=== PATIENT | male | born 1970 | race Caucasian/White ===

== ENCOUNTER 2017-10-09 20:28 | Emergency (ER) | payer OTHER ==
[2017-10-09 22:33] VITALS: BP 000/00
== END 2017-10-09 22:32 | disposition left against medical advice (07) ==
LOC: ED 20:28
DX: R10.84 Generalized abdominal pain (principal); Z53.21 Procedure and treatment not carried out due to patient leaving prior to being seen by health care provider

== ENCOUNTER 2018-11-27 01:43 | Emergency (ER) | payer OTHER ==
[2018-11-27] MEDS ORDERED: NS 0.9% 1000 ML** 1,000 ML IV ONE (02:07)
[2018-11-27] MEDS ORDERED: Metoclopramide IV* 5 MG/ML 2 ML VIAL IV ONE (02:07)
[2018-11-27] MEDS ORDERED: Morphine VIAL* 10 MG/ML 1 ML VIAL IV ONE ×2 (02:07→04:03)
[2018-11-27] MEDS ORDERED: Ketorolac INJ* 15 MG/ML 1 ML VIAL IV ONE (02:07)
--- NOTE | 2018-11-27 02:12 | ED ---
Abdominal Pain/Male - HPI Summary HPI Summary: A 48 y/o male presents to [facility] with a chief complaint of left sided abdominal pain since 23:30 11/26/18. The patient reports that this pain woke him up. At triage he rated his pain as a 10/10 in severity. Per triage note, his pain radiates to the left side of his back. He also c/o N/V but denies any testicular pain or any urinary symptoms. He denies a Hx of kidney stones. - History of Current Complaint Chief Complaint: EDAbdPain Stated Complaint: ABD PAIN Time Seen by Provider: 11/27/18 01:56 Hx Obtained From: Patient Onset/Duration: Sudden Onset, Lasting Hours, Still Present Timing: Constant, Lasting Hours Severity Initially: Severe Severity Currently: Severe Pain Intensity: 10 Pain Scale Used: 0-10 Numeric Location: Other - left sided Radiates: Yes Radiates to: Back Character: Sharp Aggravating Factor(s): Nothing Alleviating Factor(s): Nothing Associated Signs And Symptoms: Positive: Nausea, Vomiting. Negative: Fever, Urinary Symptoms - Allergies/Home Medications Allergies/Adverse Reactions: Allergies Allergy/AdvReac Type Severity Reaction Status Date / Time No Known Allergies Allergy Verified 11/01/16 12:01 Home Medications: Home Medications NK [No Home Medications Reported] 11/27/18 [History Confirmed 11/27/18] PMH/Surg Hx/FS Hx/Imm Hx Endocrine/Hematology History: Denies: Hx Diabetes Cardiovascular History: Denies: Hx Hypertension, Hx Pacemaker/ICD Respiratory History: Denies: Hx Asthma History: Denies: Hx Kidney Stones, Hx Renal Disease Sensory History: Denies: Hx Hearing Aid Psychiatric History: Denies: Hx Panic Disorder - Surgical History Surgery Procedure, Year, and Place: T&A Infectious Disease History: No Infectious Disease History: Denies: Traveled Outside the [place] in Last 30 Days - Social History Alcohol Use: None Substance Use Type: Reports: None Smoking Status (MU): Never Smoked Tobacco Review of Systems Negative: Fever Positive: Abdominal Pain, Vomiting, Nausea Positive: no symptoms reported. Negative: pain All Other Systems Reviewed And Are Negative: Yes Physical Exam - Summary Physical Exam Summary: VITAL SIGNS: Reviewed. GENERAL: Patient is a well-developed and nourished MALE who is lying comfortable in the stretcher. Patient is not in any acute respiratory distress. HEAD AND FACE: No signs of trauma. No ecchymosis, hematomas or skull depressions. No sinus tenderness. EYES: PERRLA, EOMI x 2, No injected conjunctiva, no nystagmus. EARS: Hearing grossly intact. Ear canals and tympanic membranes are within normal limits. MOUTH: Oropharynx within normal limits. NECK: Supple, trachea is midline, no adenopathy, no JVD, no carotid bruit, no c- spine tenderness, neck with full ROM. CHEST: Symmetric, no tenderness at palpation LUNGS: Clear to auscultation bilaterally. No wheezing or crackles. CVS: Regular rate and rhythm, S1 and S2 present, no murmurs or gallops appreciated. ABDOMEN: Soft, Left CVA tenderness. No signs of distention. No rebound no guarding, and no masses palpated. Bowel sounds are normal. EXTREMITIES: FROM in all major joints, no edema, no cyanosis or clubbing. NEURO: Alert and oriented x 3. No acute neurological deficits. Speech is normal and follows commands. SKIN: Dry and warm Triage Information Reviewed: Yes Vital Signs On Initial Exam: Initial Vitals Temp Pulse Resp BP Pulse Ox 95.5 F 61 22 173/104 99 11/27/18 01:53 11/27/18 01:53 11/27/18 01:53 11/27/18 01:53 11/27/18 01:53 Vital Signs Reviewed: Yes Diagnostics - Vital Signs Vital Signs Temp Pulse Resp BP Pulse Ox 11/27/18 01:53 95.5 F 61 22 173/104 99 - Laboratory Result Diagrams: 11/27/18 02:30 11/27/18 02:30 Lab Statement: Any lab studies that have been ordered have been reviewed, and results considered in the medical decision making process. - CT abdomen/pelvis CT Interpretation Completed By: Radiologist Summary of CT Findings: 1. Nonobstructing left renal calculus. 2. Bladder calculus. 3. Mild left hydroureteronephrosis, possibly representing residual change from. recent passage of a distal left ureteral calculus. 4. Colonic diverticulosis. ED physician has reviewed this imaging report. Re-Evaluation - Re-Evaluation First Eval Re-Evaluation Time: 03:15 Change: Unchanged Comment: informed pt about results Abdominal Pain Fem Course/Dx - Course Course Of Treatment: A 48 y/o male presents to [facility] with a chief complaint of left sided abdominal pain since 23:30 11/26/18. The patient reports that this pain woke him up. At triage he rated his pain as a 10/10 in severity. Per triage note, his pain radiates to the left side of his back. He also c/o N/V but denies any testicular pain or any urinary symptoms. He denies a Hx of kidney stones. The physical exam revealed left CVA tenderness. In the ED course the patient was given Sodium chloride IV, 15mg Toradol IV, 10mg Reglan IV and 4mg Morphine IV. Lab results obtained and are WNL. CT abdomen/pelvis impression : 1. Nonobstructing left renal calculus. 2. Bladder calculus. 3. Mild left hydroureteronephrosis, possibly representing residual change from. recent passage of a distal left ureteral calculus. 4. Colonic diverticulosis. Urines obtained. Trace urine ketones. The patient will be discharged. Return precautions given. He is agreeable with this plan. - Diagnoses Provider Diagnoses: Renal colic, Bladder stone Discharge - Sign-Out/Discharge Documenting (check all that apply): Patient Departure - DC Patient Received Moderate/Deep Sedation with Procedure: No - Discharge Plan Condition: Stable Disposition: HOME Patient Education Materials: Renal Colic (ED) Referrals: José Miguel Jiang DO [Primary Care Provider] - Additional Instructions: RETURN TO THE EMERGENCY DEPARTMENT FOR CHANGING OR WORSENING SYMPTOMS. FOLLOW UP WITH PCP IN 1-2 DAYS. - Billing Disposition and Condition Condition: STABLE Disposition: Home - Attestation Statements Document Initiated by Issaibe: Yes Documenting Scribe: Armin Nicole Provider For Whom Glen is Documenting (Include Credential): Sharon Jaime MD Scribe Attestation: Armin Greenfield, scribed for Sharon Jaime MD on 11/27/18 at 0613. Scribe Documentation Reviewed: Yes Provider Attestation: The documentation as recorded by the Armin melgoza accurately reflects the service I personally performed and the decisions made by me, Sharon Jaime MD Status of Scribe Document: Viewed
[2018-11-27 02:43] LABS: ABS Basophils 0 10^3/ul (0-0.2); ABS Eosinophils 0.3 10^3/ul (0-0.6); ABS Lymphocytes 1.7 10^3/ul (1.0-4.8); ABS Monocytes 0.7 10^3/ul (0-0.8); ABS Neutrophils 8.5 10^3/ul (1.5-7.7); ABS Nucleated RBC 0 10^3/ul; Eosinophil % 2.3 %; Hematocrit 46 % (42-52); Hemoglobin 15.3 g/dl (14.0-18.0); Lymphocyte % 14.9 %; Mean Corpuscular HGB Conc 34 g/dl (31-36); Mean Corpuscular Hemoglobin 30 pg (27-31); Mean Corpuscular Volume 88 fL (80-94); Mean Platelet Volume 8.1 fL (7.4-10.4); Nucleated Red Blood Cells % 0.1; Platelet Count 220 10^3/ul (150-450); Red Blood Count 5.18 10^6/ul (4.00-5.40); Red Cell Distribution Width 14 % (10.5-15); White Blood Count 11.2 10^3/ul (3.5-10.8)
[2018-11-27 03:00] LABS: Albumin 4.6 g/dL (3.2-5.2); Albumin/Globulin Ratio 1.7 (1-3); BUN/Creatinine Ratio 13.9 (8-20); C Reactive Protein 1.24 mg/L (<8.01); Calcium 9.8 mg/dL (8.6-10.3); EGFR African American 81.8 (>60); EGFR Non-African American 67.6 (>60); Globulin 2.7 g/dL (2-4); Magnesium 1.9 mg/dL (1.9-2.7); Potassium 3.9 mmol/L (3.5-5.0); Total Bilirubin 0.4 mg/dL (0.2-1.0); Total Protein 7.3 g/dL (6.4-8.9)
[2018-11-27 04:08] LABS: Urine Appearance Clear; Urine Bilirubin Negative (Negative); Urine Blood Negative (Negative); Urine Color Yellow; Urine Glucose Negative (Negative); Urine Ketones Trace (Negative); Urine Nitrite Negative (Negative); Urine Protein Negative (Negative); Urine Specific Gravity 1.019 (1.010-1.030); Urine Urobilinogen Negative (Negative)
[2018-11-27 04:37] VITALS: BP 116/67
== END 2018-11-27 04:36 | disposition home or self-care (01) ==
LOC: ED 01:43
DX: N23 Unspecified renal colic (principal); N21.0 Calculus in bladder; R11.2 Nausea with vomiting, unspecified; R10.9 Unspecified abdominal pain
CPT/HCPCS: 36415; 74176; 80053; 81003; 82150; 83690; 83735; 85025; 86140; 96361; 96374; 96375; 96376; 99283; J1885; J2270; J2765